=== PATIENT | male | born 1995 | race Caucasian/White ===

== ENCOUNTER → 2024-01-23 | Outpatient (REF) | LOC: M PLAIMG 11:06 | PROVIDERS: ATTEND Nurse Practitioner Family | DX: M79.646 Pain in unspecified finger(s) (principal) ==

== ENCOUNTER → 2024-10-22 | Outpatient (CLI) | payer OTHER | LOC: M RAD 06:55 | PROVIDERS: ATTEND Internal Medicine | DX: R59.0 Localized enlarged lymph nodes (principal) ==